=== PATIENT | female | born 1940 | race Caucasian/White ===

== ENCOUNTER 2016-11-03 13:52 | Outpatient (CLI) | payer MEDICARE, OTHER | END 2016-11-03 23:59 | DX: N30.00 Acute cystitis without hematuria (principal) ==

== ENCOUNTER 2017-04-08 11:53 | Outpatient (CLI) | payer MEDICARE, OTHER ==
[2017-04-08 12:18] LABS: BASOPHILS # (AUTO) 0.1 10^3/uL (0.0-0.1); EOSINOPHILS # (AUTO) 0.1 10^3/uL (0.0-0.7); EOSINOPHILS % (AUTO) 1.4 %; HGB - HEMOGLOBIN 11.1 g/dL (12.0-16.0); LYMPHOCYTES # (AUTO) 1.1 10^3/uL (1.5-3.5); MEAN CORPUSCULAR HEMOGLOBIN 33.3 pg (27.0-31.0); MEAN CORPUSCULAR HGB CONC 33.8 g/dL (32.0-36.0); MEAN CORPUSCULAR VOLUME 98.6 fL (81.0-99.0); MEAN PLATELET VOLUME 7.6 fL (7.9-10.8); MONOCYTES # (AUTO) 0.8 10^3/uL (0.0-1.0); MONOCYTES % (AUTO) 7.6 %; NEUTROPHILS # (AUTO) 7.9 10^3/uL (1.5-6.6); RED BLOOD COUNT 3.35 10^6/uL (4.20-5.40); RED CELL DISTRIBUTION WIDTH 13.9 % (12.0-15.0)
== END 2017-04-08 11:54 | disposition home or self-care (01) ==
LOC: LAB 11:53
PROVIDERS: ATTEND Internal Medicine
DX: R05 Cough (principal)
CPT/HCPCS: 36415; 85025

== ENCOUNTER 2017-04-08 12:07 | Outpatient (CLI) | payer MEDICARE, OTHER ==
--- NOTE | 2017-04-08 16:18 | XRAY Report ---
TWO VIEW CHEST: 04/08/2017 CLINICAL INDICATION: Cough. FINDINGS: Frontal and lateral views of the chest are compared to previous films of 03/18/2014. The cardiac silhouette is within normal limits. A left-sided dialysis catheter terminates in the righ t atrium. There is a 4.4 cm region of rounded consolidation or mass in the posterior right lung, with new elevation of the right hemidiaphragm, suspicious for underlying lung cancer. Consider CT of the chest for further evaluation. No pneumothorax is evident. IMPRESSION: EITHER A ROUNDED INFILTRATE OR A MASS IN THE POSTERIOR RIGHT LUNG, WITH ELEVATION OF THE RIGHT HEMIDIAPHRAGM. CONSIDER CHEST CT FOR FURTHER EVALUATION. JOB #: [id number] EXT JOB #:[id number]
== END 2017-04-08 12:08 | disposition home or self-care (01) ==
LOC: DI 12:07
PROVIDERS: ATTEND Internal Medicine
DX: R91.8 Other nonspecific abnormal finding of lung field (principal)
CPT/HCPCS: 36415; 71020; 85025

== ENCOUNTER 2017-04-26 15:15 | Outpatient (CLI) | payer MEDICARE, OTHER ==
--- NOTE | 2017-04-27 09:27 | XRAY Report ---
TWO VIEW CHEST: 04/26/2017 CLINICAL INDICATION: Cough. FINDINGS: Frontal and lateral views of the chest are compared to previous films of 04/08/2017. A left jugular dialysis catheter is stable. The cardiac silhouette is not enlarged. A rounded opacity in the right lung has decreased in prominence in the interval, likely representing a round pneumonia given this rate of resolution. No effusion or pneumothorax is seen. Elevation of the right hemidiaph ragm is stable. IMPRESSION: IMPROVING OPACITY AT THE RIGHT LUNG BASE, LIKELY REPRESENTING A RESOLVING PNEUMONIA. JOB #: [id number] EXT JOB #:[id number]
== END 2017-04-26 15:16 | disposition home or self-care (01) ==
LOC: DI.N 15:15
PROVIDERS: ATTEND Internal Medicine
DX: R91.8 Other nonspecific abnormal finding of lung field (principal)
CPT/HCPCS: 71020

== ENCOUNTER 2017-10-04 17:57 | Emergency (ER) | payer MEDICARE, OTHER ==
[2017-10-04 19:31] LABS: BASOPHILS # (AUTO) 0.1 10^3/uL (0.0-0.1); EOSINOPHILS # (AUTO) 0.1 10^3/uL (0.0-0.7); EOSINOPHILS % (AUTO) 0.8 %; HGB - HEMOGLOBIN 11.1 g/dL (12.0-16.0); LYMPHOCYTES # (AUTO) 0.4 10^3/uL (1.5-3.5); LYMPHOCYTES % (AUTO) 5.2 %; MEAN CORPUSCULAR HEMOGLOBIN 33.3 pg (27.0-31.0); MEAN CORPUSCULAR HGB CONC 32.9 g/dL (32.0-36.0); MEAN CORPUSCULAR VOLUME 101.3 fL (81.0-99.0); MEAN PLATELET VOLUME 6.7 fL (7.9-10.8); MONOCYTES # (AUTO) 0.4 10^3/uL (0.0-1.0); MONOCYTES % (AUTO) 4.8 %; NEUTROPHILS # (AUTO) 7.5 10^3/uL (1.5-6.6); NEUTROPHILS % (AUTO) 88.2 %; PLT - PLATELET COUNT 166 10^3/uL (130-450); RED BLOOD COUNT 3.33 10^6/uL (4.20-5.40); RED CELL DISTRIBUTION WIDTH 15.3 % (12.0-15.0); WHITE BLOOD COUNT 8.6 x10^3/uL (4.8-10.8)
[2017-10-04 19:48] LABS: ALBUMIN 3.9 g/dL (3.2-5.5); ALKALINE PHOSPHATASE 71 IU/L (42-121); ALT ALANINE AMINOTRANSFERASE < 10 IU/L (10-60); AST ASPARTATE AMINOTRANSFERASE 14 IU/L (10-42); BILIRUBIN,TOTAL 0.3 mg/dL (0.2-1.0); BUN - BLOOD UREA NITROGEN 54 mg/dL (6-20); CALCIUM 6.8 mg/dL (8.5-10.3); CARBON DIOXIDE - CO2 24 mmol/L (21-32); CHLORIDE 92 mmol/L (101-111); CREATININE 6.3 mg/dL (0.4-1.0); GFR - MDRD 6 (>89); GLUCOSE 121 mg/dL (70-100); LIPASE 22 U/L (22-51); SODIUM 132 mmol/L (135-145)
--- NOTE | 2017-10-04 19:58 | XRAY Report ---
EXAM: CHEST RADIOGRAPHY EXAM DATE: 10/04/2017 07:41 PM. CLINICAL HISTORY: Cough, weak. COMPARISON: 07/15/2017 chest x-ray. TECHNIQUE: 2 views. FINDINGS: Lungs/Pleura: There is elevation of the right hemidiaphragm. The visualized lungs are otherwise clear . No pleural effusion or pneumothorax. Mediastinum: Heart and mediastinal contours are unremarkable. Other: Chest port in stable position. IMPRESSION: Chronic elevation of right hemidiaphragm. No acute airspace disease. [facility] Referring Provider Line: [phone] SITE ID: [id number]
[2017-10-04] MEDS ORDERED: guaiFENesin/CODEINE 5 ML UDC PO STA (20:12)
--- NOTE | 2017-10-04 20:14 | ED Physician Documentation ---
History of Present Illness - Stated complaint Stated Complaint: GLF/WEAK - Chief complaint Chief Complaint: Neuro - History obtained from History obtained from: Patient, Family - History of Present Illness Timing: Today - Additonal information Additional information: Patient is a 77 year old female with a history of esrd on dialysis who is presenting to the emergency department for cough, diarrhea and generalized weakness. According to patient and over the last week the patient's nephew has been sick and the patient developed some of the same symptoms. patient states that she has had a few episodes of diarrhea and has been coughing. Patient states that the frequent coughing has strained her abdomen. patient states that she skipped dialysis because she wasn't feeling well. Review of Systems Constitutional: denies: Fever Eyes: denies: Discharge, Irritation Ears: denies: Ear pain, Drainage/discharge Nose: reports: Rhinorrhea / runny nose, Congestion Throat: denies: Oral lesions / sores Cardiac: denies: Chest pain / pressure, Palpitations, Calf pain Respiratory: reports: Cough. denies: Wheezing GI: reports: Diarrhea. denies: Abdominal Pain, Nausea, Vomiting : denies: Dysuria, Frequency Skin: denies: Rash, Lesions Immunocompromised: denies: Immunocompromised PD PAST MEDICAL HISTORY - Past Medical History Cardiovascular: Hypertension, Other Respiratory: Other Endocrine/Autoimmune: HyPOthyroidism GI: Hiatal hernia : Renal insuffiency, Other Musculoskeletal: Other Derm: None - Past Surgical History Past Surgical History: Yes General: Cholecystectomy Ortho: Other - Present Medications Home Medications: Ambulatory Orders Medication Instructions Recorded Confirmed Alprazolam [Xanax] 0.25 mg PO TID PRN 04/16/13 10/04/17 Calcitriol [Rocaltrol] 0.25 mcg PO DAILY 04/16/13 10/04/17 Levothyroxine Sodium [Levothroid] 50 mcg PO DAILY 04/16/13 10/04/17 Metoprolol Tartrate 200 mg PO BID 04/16/13 10/04/17 Nortriptyline HCl 50 mg PO DAILY 04/16/13 10/04/17 Omeprazole 20 mg PO BID 04/16/13 10/04/17 amLODIPine [Norvasc] 2.5 mg PO DAILY 04/16/13 10/04/17 Diazepam [Valium] 2 mg PO DAILY 03/18/14 10/04/17 Amox/Clav 500/125 [Augmentin] 1 each PO DAILY #10 tablet 07/15/17 10/04/17 Azithromycin [Zithromax] 250 mg PO DAILY #4 tablet 07/15/17 10/04/17 ALPRAZolam [Alprazolam] BID 10/04/17 Benzonatate [Tessalon] 100 mg PO TID #14 capsule 10/04/17 Codeine Phosphate/Guaifenesin 5 ml PO DAILY #100 ml 10/04/17 [Guaifen-Codeine 100-10 mg/5 ml] Ondansetron Odt [Zofran] 4 mg TL Q6H PRN #14 tablet 10/04/17 - Allergies Allergies/Adverse Reactions: Allergies Allergy/AdvReac Type Severity Reaction Status Date / Time No Known Drug Allergies Allergy Verified 07/15/17 17:07 - Social History Does the pt smoke?: No Smoking Status: Never smoker Does the pt drink ETOH?: No Does the pt have substance abuse?: No - Immunizations Immunizations are current?: Yes Immunizations: TDAP >10years/unknown - POLST Patient has POLST: No PD ED PE NORMAL - Vitals Vital signs reviewed: Yes - General General: Alert and oriented X 3, No acute distress - HEENT HEENT: Atraumatic, PERRL, Moist mucous membranes - Neck Neck: Supple, no meningeal sign - Cardiac Cardiac: RRR, No murmur - Respiratory Respiratory: No respiratory distress - Abdomen Abdomen: Soft, Non distended - Derm Derm: Normal color, Warm and dry - Extremities Extremities: No deformity, Normal ROM s pain - Neuro Neuro: Alert and oriented X 3, No motor deficit, No sensory deficit, Normal speech - Psych Psych: Normal mood Results - Vitals Vitals: Vital Signs - 24 hr 10/04/17 10/04/17 18:26 20:26 Temperature 37.3 C 37.5 C Heart Rate 85 85 Respiratory 20 18 Rate Blood Pressure 144/59 H 136/75 H O2 Saturation 96 98 Oxygen O2 Source Room air - Labs Labs: Laboratory Tests 10/04/17 10/04/17 19:25 19:25 WBC 8.6 RBC 3.33 L Hgb 11.1 L Hct 33.7 L MCV 101.3 H MCH 33.3 H MCHC 32.9 RDW 15.3 H Plt Count 166 MPV 6.7 L Neut # 7.5 H Lymph # 0.4 L [place] # 0.4 Eos # 0.1 Baso # 0.1 Absolute Nucleated RBC 0.01 Nucleated RBC % 0.1 Sodium 132 L Potassium 5.8 H Chloride 92 L Carbon Dioxide 24 Anion Gap 16.0 H BUN 54 H Creatinine 6.3 H Estimated GFR (MDRD) 6 L Glucose 121 H Calcium 6.8 L Total Bilirubin 0.3 AST 14 ALT < 10 L Alkaline Phosphatase 71 Total Protein 8.0 Albumin 3.9 Globulin 4.1 Albumin/Globulin Ratio 1.0 Lipase 22 - Rads (name of study) chest x-ray Radiology: Final report received (no acute disease process) PD MEDICAL DECISION MAKING - ED course Complexity details: reviewed old records, reviewed results, re-evaluated patient , considered differential, d/w patient, d/w family ED course: Patient was seen and examined at bedside. labs were drawn and ekg was ordered. When patient's diagnostics came back the results were reviewed. Patient had mild hyperkalemia but no ekg changes. Patient was treated with robitussin AC. Patient required no further work up at this time and was stable for discharge with outpatient follow up. Departure - Departure Disposition: 01 Home, Self Care Clinical Impression: Viral syndrome Condition: Good Instructions: ED Viral Syndrome Follow-Up: Edgar Ceballos MD [Primary Care Provider] - Within 3 Days Prescriptions: Benzonatate [Tessalon] 100 mg PO TID #14 capsule Codeine Phosphate/Guaifenesin [Guaifen-Codeine 100-10 mg/5 ml] 5 ml PO DAILY # 100 ml Ondansetron Odt [Zofran] 4 mg TL Q6H PRN #14 tablet PRN Reason: Nausea / Vomiting Comments: Your diagnostics today showed no pneumonia. Your symptoms are likely viral in nature. It is important that you stay well hydrated and get plenty of rest. You should drink water and electrolyte solution (gatorade). it is important that you go to [facility]ail[facility] tomorrow for your treatment. You should follow up with your doctor this week if your symptoms persist. You may return to the emergency department at any time for new, worsening or uncontrollable symptoms. Discharge Date/Time: 10/04/17 20:41
[2017-10-04 20:27] VITALS: BP 136/75
== END 2017-10-04 20:41 | disposition home or self-care (01) ==
LOC: ED 17:57
DX: B34.9 Viral infection, unspecified (principal); I12.0 Hypertensive chronic kidney disease with stage 5 chronic kidney disease or end stage renal disease; N18.6 End stage renal disease; Z99.2 Dependence on renal dialysis; E03.9 Hypothyroidism, unspecified
CPT/HCPCS: 36415; 71046; 80053; 83690; 85025; 99283; 99284; A9270

== ENCOUNTER 2018-12-23 12:26 | Emergency (ER) | payer MEDICARE, OTHER ==
--- NOTE | 2018-12-23 13:29 | ED Physician Documentation ---
PD HPI HEAD INJURY - Stated complaint Stated Complaint: GLF/FACE AND HEAD PX - Chief complaint Chief Complaint: Neuro - History obtained from History obtained from: Patient PD PAST MEDICAL HISTORY - Past Medical History Cardiovascular: Hypertension, Other Respiratory: Other Endocrine/Autoimmune: HyPOthyroidism GI: Hiatal hernia : Renal insuffiency, Other Musculoskeletal: Other Derm: None - Past Surgical History Past Surgical History: Yes General: Cholecystectomy Ortho: Other - Present Medications Home Medications: Ambulatory Orders Medication Instructions Recorded Confirmed Levothyroxine Sodium [Levothroid] 50 mcg PO DAILY 04/16/13 12/23/18 Metoprolol Tartrate 200 mg PO BID 04/16/13 12/23/18 Nortriptyline HCl 50 mg PO DAILY 04/16/13 12/23/18 Albuterol 1 neb IH QID PRN 12/23/18 12/23/18 Hydrocodone/Acetaminophen [[place] 1 tab PO TID PRN 12/23/18 12/23/18 5-325 Tablet] Pantoprazole [Protonix] 1 tab PO DAILY 12/23/18 12/23/18 clonazePAM [Clonazepam] 1 tab PO TID PRN 12/23/18 12/23/18 - Allergies Allergies/Adverse Reactions: Allergies Allergy/AdvReac Type Severity Reaction Status Date / Time No Known Drug Allergies Allergy Verified 07/15/17 17:07 - Social History Does the pt smoke?: No Smoking Status: Never smoker Does the pt drink ETOH?: No Does the pt have substance abuse?: No - Immunizations Immunizations are current?: Yes Immunizations: TDAP >10years/unknown - POLST Patient has POLST: No Results - Vitals Vitals: Vital Signs - 24 hr 12/23/18 12:36 Temperature 37.1 C Heart Rate 75 Respiratory 18 Rate Blood Pressure 132/54 H O2 Saturation 98 Oxygen O2 Source Room air
[2018-12-23] MEDS ORDERED: HYDROmorphone 1 MG/ML CARPUJECT IVP STA (13:35)
--- NOTE | 2018-12-23 13:45 | ED Physician Documentation ---
PD HPI HEAD INJURY - Stated complaint Stated Complaint: GLF/FACE AND HEAD PX - Chief complaint Chief Complaint: Neuro - History obtained from History obtained from: Patient, Family - History of Present Illness Mechanism of head injury: Fell Where head injury occurred: Home Timing - onset: How many days ago (2) Pain level max: 8 Pain level now: 8 Location of injury: Front Quality of pain: Pain, Throbbing, Aching, Dull Associated symptoms: Neck pain. No: LOC, AMS, Amnesia, Nausea / vomiting, Paresthesias, Seizures, Ear drainage Symptoms improve with: Rest Symptoms worsen with: Palpation, Movement Contributing factors: No: Anticoagulated, Intoxicated Recently seen: Not recently seen - Additional information Additional information: Patient states that she follows regularly. She was using her walker leaving the bathroom when she turned tripped and fell forward landing on her face. Head, face and neck pain now. Better with rest and worse with movement. Is on Vicodin normally at home for pain Review of Systems Ten Systems: 10 systems reviewed and negative Constitutional: denies: Fever, Chills Respiratory: denies: Cough GI: denies: Vomiting, Diarrhea Skin: denies: Rash Musculoskeletal: denies: Back pain Neurologic: denies: Focal weakness, Numbness, Confused, Altered mental status PD PAST MEDICAL HISTORY - Past Medical History Cardiovascular: Hypertension, Other Respiratory: Other Endocrine/Autoimmune: HyPOthyroidism GI: Hiatal hernia : Renal insuffiency, Other Musculoskeletal: Other Derm: None - Past Surgical History Past Surgical History: Yes General: Cholecystectomy Ortho: Other - Present Medications Home Medications: Ambulatory Orders Medication Instructions Recorded Confirmed Levothyroxine Sodium [Levothroid] 50 mcg PO DAILY 04/16/13 12/23/18 Metoprolol Tartrate 200 mg PO BID 04/16/13 12/23/18 Nortriptyline HCl 50 mg PO DAILY 04/16/13 12/23/18 Albuterol 1 neb IH QID PRN 12/23/18 12/23/18 Hydrocodone/Acetaminophen [[place] 1 tab PO TID PRN 12/23/18 12/23/18 5-325 Tablet] Pantoprazole [Protonix] 1 tab PO DAILY 12/23/18 12/23/18 clonazePAM [Clonazepam] 1 tab PO TID PRN 12/23/18 12/23/18 - Allergies Allergies/Adverse Reactions: Allergies Allergy/AdvReac Type Severity Reaction Status Date / Time No Known Drug Allergies Allergy Verified 07/15/17 17:07 - Social History Does the pt smoke?: No Smoking Status: Never smoker Does the pt drink ETOH?: No Does the pt have substance abuse?: No - Immunizations Immunizations are current?: Yes Immunizations: TDAP >10years/unknown - POLST Patient has POLST: No PD ED PE NORMAL - Vitals Vital signs reviewed: Yes - General General: Alert and oriented X 3, No acute distress, Well developed/nourished - HEENT HEENT: PERRL, Moist mucous membranes, Other (Diffuse bruising over the forehead bridge of the nose, under the eyes. Facial tenderness throughout.) - Neck Neck: No bony TTP (Diffuse tenderness to palpation over the cervical spine.) - Cardiac Cardiac: RRR, Strong equal pulses - Respiratory Respiratory: No respiratory distress, Clear bilaterally - Abdomen Abdomen: Soft, Non tender, Non distended - Back Back: No spinal TTP - Derm Derm: Warm and dry, No rash - Extremities Extremities: No deformity, No tenderness to palpate, Normal ROM s pain, Other (Dialysis port in the left upper chest) - Neuro Neuro: Alert and oriented X 3, quality compliance manager 2-12 intact, No motor deficit, No sensory deficit, Normal speech Eye Opening: Spontaneous Motor: Obeys Commands Verbal: Oriented GCS Score: 15 - Psych Psych: Normal mood, Normal affect Results - Vitals Vitals: Vital Signs - 24 hr 12/23/18 12/23/18 12:36 14:51 Temperature 37.1 C Heart Rate 75 79 Respiratory 18 18 Rate Blood Pressure 132/54 H 148/69 H O2 Saturation 98 100 Oxygen O2 Source Room air - Labs Labs: Laboratory Tests 12/23/18 14:45 Sodium 132 L Potassium 4.8 Chloride 97 L Carbon Dioxide 22 Anion Gap 13.0 BUN 55 H Creatinine 5.8 H Estimated GFR (MDRD) 7 L Glucose 102 H Calcium 7.9 L - Rads (name of study) head CT Radiology: Prelim report reviewed, EMP read contemporaneously, See rad report (Normal head CT. ) Maxillofacial CT Radiology: Prelim report reviewed, EMP read contemporaneously, See rad report ( No facial bone fractures. 2. Acute type II dens fracture, see accompanying CT scan head and cervical spine for details. 3. Multifocal poor dentition of the remaining teeth. ) Cervical spine CT Radiology: Prelim report reviewed, EMP read contemporaneously, See rad report (Acute, posteriorly displaced, angulated fracture through the base of the dens as described. No additional fractures appreciated. ) PD MEDICAL DECISION MAKING - ED course Complexity details: reviewed results, re-evaluated patient, considered differential, d/w patient, d/w family, d/w education sales consultant ED course: 78-year-old female with a type II dens fracture, posteriorly displaced. Placed in a hard cervical collar. Contacted [facility] in [place], Dr. Dash (neurosurgery) Recommends transfer to the trauma service. I spoke with the ER doctor, [id number] Dr. Ch who graciously accepts in transfer. Patient is GCS 15. Neurologically intact. Pain well controlled. No other acute findings on CT scans. She is on dialysis and missed her dialysis on Tuesday secondary to neck pain. COBRA forms completed. Patient transferred to [facility] in [place]. This document was made in part using voice recognition software. While efforts are made to proofread this document, sound alike and grammatical errors may occur. Departure - Departure Disposition: 02 Transfer Acute Care Hosp Clinical Impression: Type II fracture of odontoid process Qualifiers: Encounter type: initial encounter Fracture type: closed Fracture alignment: posteriorly displaced Qualified Code(s): S12.111A - Posterior displaced Type II dens fracture, initial encounter for closed fracture Condition: Stable
--- NOTE | 2018-12-23 14:20 | CT Report ---
Reason: fall, head pain Procedure Date: 12/23/2018 Accession Number: [id number] / [id number] Procedure: CT - HEAD WO CPT Code: FULL RESULT: EXAM: CT HEAD EXAM DATE: 12/23/2018 01:57 PM. CLINICAL HISTORY: Fall, head pain. COMPARISON: None. TECHNIQUE: Multiaxial CT images were obtained from the foramen magnum to the vertex. Reformats: Sagittal and coronal. IV contrast: None. In accordance with CT protocol optimization, one or more of the following dose reduction techniques were utilized for this exam: automated exposure control, adjustment of mA and/or KV based on patient size, or use of iterative reconstructive technique. FINDINGS: Parenchyma: No intraparenchymal hemorrhage. No evidence of mass, midline shift, or CT findings of infarction. Jones-white differentiation is distinct. Extraaxial Spaces: Normal for age. No subdural or epidural collections identified. Ventricles: Normal in size and position. Sinuses and Orbits: Imaged paranasal sinuses, orbits, and mastoids show no significant abnormality. Bones: No evidence of fracture or calvarial defect. Other: None. IMPRESSION: Normal head CT. [facility]
--- NOTE | 2018-12-23 14:34 | CT Report ---
Reason: fall, neck pain Procedure Date: 12/23/2018 Accession Number: [id number] / [id number] Procedure: CT - CERVICAL SPINE WO CPT Code: FULL RESULT: EXAM: CT CERVICAL SPINE WITHOUT CONTRAST DATE: 12/23/2018 02:07 PM. HISTORY: Fall, neck pain. COMPARISONS: None. TECHNIQUE: Thin-section axial images were acquired of the cervical spine without contrast. Post-processing: Coronal and sagittal reformats. Other: None. In accordance with CT protocol optimization, one or more of the following dose reduction techniques were utilized for this exam: automated exposure control, adjustment of mA and/or KV based on patient size, or use of iterative reconstructive technique. FINDINGS: Alignment: As below. Bones: There is an acute transverse, displaced, apex anterior angulated fracture through the base of the dens. The dens fracture fragment is displaced posteriorly by 6 mm and there is 4-5 mm of distraction at the anterior fracture margin. There is 37 degrees of apex anterior angulation. No additional fractures appreciated. Interspace Levels/Facets: C1-C2: Intact C1 ring (joints of Luschka/spinal laminar line) is displaced posteriorly 6 mm along with the dens fracture fragment. C2-C3: Unremarkable. C3-C4: Unremarkable. C4-C5: Disk space narrowing, mild osteophytosis and facet arthrosis C5-C6: Mild bilateral facet arthrosis. C6-C7: Disk space narrowing and bilateral facet arthrosis. C7-T1: Unremarkable. Musculature: Normal. No fatty atrophy. Other: Swelling of the prevertebral soft tissues anterior to C1 and C2 upwards of 7 mm. Mild biapical pleural thickening amd vertical bands of opacity most likely a scar. IMPRESSION: 1. Acute, posteriorly displaced, angulated fracture through the base of the dens as described. No additional fractures appreciated. [facility] The call report notification system was initiated by Dr. César Heredia at 02:22 PM on 12/23/2018. The above call report findings were discussed with Mike Mary by Dr. César Heredia at 02:25 PM on 12/23/2018.
--- NOTE | 2018-12-23 14:54 | CT Report ---
Reason: fall, face pain Procedure Date: 12/23/2018 Accession Number: [id number] / [id number] Procedure: CT - MAXILLOFACIAL WO CPT Code: FULL RESULT: EXAM: CT MAXILLOFACIAL WITHOUT CONTRAST EXAM DATE: 12/23/2018 02:07 PM. CLINICAL HISTORY: Fall, face pain. COMPARISONS: Accompanying CT scan head/ cervical spine. TECHNIQUE: Thin-section axial images were acquired of the face without contrast. Post-processing: Coronal and sagittal reformats. Other: None. In accordance with CT protocol optimization, one or more of the following dose reduction techniques were utilized for this exam: automated exposure control, adjustment of mA and/or KV based on patient size, or use of iterative reconstructive technique. Findings: Relevant images are indicated (image number, series number). The mandible is intact, patient partially edentulous with multifocal poor dentition remaining, no apical cyst. Maxilla is edentulous. There is prevertebral soft tissue swelling, with an acute type II C2 odontoid fracture, with posterior displacement of the tip of the dens relative to the body of the dens measuring 0.4 cm. There are no facial bone fractures. The skull base appears to be intact. Impressions: 1. No facial bone fractures. 2. Acute type II dens fracture, see accompanying CT scan head and cervical spine for details. 3. Multifocal poor dentition of the remaining teeth. [facility]
[2018-12-23 15:12] LABS: CALCIUM 7.9 mg/dL (8.5-10.3); CREATININE 5.8 mg/dL (0.4-1.0)
[2018-12-23 15:15] LABS: BASOPHILS % (AUTO) 0.4 %; EOSINOPHILS # (AUTO) 0.1 10^3/uL (0.0-0.7); HGB - HEMOGLOBIN 10.5 g/dL (12.0-16.0); LYMPHOCYTES # (AUTO) 1.2 10^3/uL (1.5-3.5); LYMPHOCYTES % (AUTO) 10.2 %; MEAN CORPUSCULAR HEMOGLOBIN 33.2 pg (27.0-31.0); MEAN CORPUSCULAR HGB CONC 33.1 g/dL (32.0-36.0); MEAN CORPUSCULAR VOLUME 100.3 fL (81.0-99.0); MONOCYTES # (AUTO) 0.7 10^3/uL (0.0-1.0); MONOCYTES % (AUTO) 5.9 %; NEUTROPHILS # (AUTO) 9.5 10^3/uL (1.5-6.6); NEUTROPHILS % (AUTO) 82.5 %; PLT - PLATELET COUNT 212 10^3/uL (130-450); RED BLOOD COUNT 3.15 10^6/uL (4.20-5.40); RED CELL DISTRIBUTION WIDTH 14.6 % (12.0-15.0); WHITE BLOOD COUNT 11.5 x10^3/uL (4.8-10.8)
[2018-12-23 15:20] LABS: BILIRUBIN,URINE NEGATIVE (NEGATIVE); GLUCOSE, URINE (UA) NEGATIVE (NEGATIVE); KETONES,URINE (UA) NEGATIVE (NEGATIVE); LEUKOCYTE ESTERASE, URINE LARGE (NEGATIVE); NITRITE,URINE NEGATIVE (NEGATIVE); OCCULT BLOOD,URINE MODERATE (NEGATIVE); PROTEIN,URINE TRACE mg/dL (NEGATIVE); UROBILINOGEN,URINE 0.2 (NORMAL) E.U./dL (NORMAL)
[2018-12-23 15:22] LABS: CLARITY,URINE HAZY (CLEAR)
[2018-12-23 15:30] LABS: BACTERIA,URINE Rare /HPF (None Seen); SQUAMOUS EPITHELIAL CELL,UR FEW Squamous (<= Few)
[2018-12-23 15:31] LABS: YEAST,URINE PRESENT
[2018-12-23 16:11] VITALS: BP 139/68
== END 2018-12-23 16:29 | disposition short-term general hospital (02) ==
LOC: ED 12:26
DX: S12.111A Posterior displaced Type II dens fracture, initial encounter for closed fracture (principal); S00.83XA Contusion of other part of head, initial encounter; S00.33XA Contusion of nose, initial encounter; W01.10XA Fall on same level from slipping, tripping and stumbling with subsequent striking against unspecified object, initial encounter; S00.12XA Contusion of left eyelid and periocular area, initial encounter; S00.11XA Contusion of right eyelid and periocular area, initial encounter; Y93.01 Activity, walking, marching and hiking; Y92.009 Unspecified place in unspecified non-institutional (private) residence as the place of occurrence of the external cause; I10 Essential (primary) hypertension; E03.9 Hypothyroidism, unspecified; Z99.2 Dependence on renal dialysis; Z91.81 History of falling
CPT/HCPCS: 36415; 70450; 70486; 72125; 80048; 81001; 85025; 87086; 96374; 99283; 99284; J1170; 81003

== ENCOUNTER 2019-11-29 14:44 | Emergency (ER) | payer MEDICARE, OTHER ==
--- NOTE | 2019-11-29 15:27 | ED Physician Documentation ---
History of Present Illness - Stated complaint Stated Complaint: FEVER/CHILLS - Chief complaint Chief Complaint: General - History obtained from History obtained from: Patient (79-year-old pleasant female comes in today with chief complaint of fever, chills, cough. She has a past medical history of pneumonia on the right side a year or 2 ago, she has concerns that she may have pneumonia again. Patient does complain of having a cough, rhinorrhea, postnasal drip. 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 She used it once last night, with good results. She has not used it today. She denies feeling short of breath.), Family Review of Systems Constitutional: reports: Fever, Chills, Fatigue Eyes: reports: Reviewed and negative Ears: reports: Loss of hearing. denies: Drainage/discharge, Tinnitus/ringing Nose: reports: Rhinorrhea / runny nose, Congestion. denies: Sinus pressure / pain Throat: reports: Reviewed and negative Cardiac: reports: Reviewed and negative Respiratory: reports: Cough, Wheezing GI: reports: Reviewed and negative : reports: Other Skin: reports: Reviewed and negative Musculoskeletal: reports: Reviewed and negative, Other PD PAST MEDICAL HISTORY - Past Medical History Past Medical History: Yes Cardiovascular: Hypertension, Other Respiratory: Other Endocrine/Autoimmune: HyPOthyroidism GI: Hiatal hernia : Renal insuffiency, Other Musculoskeletal: Other Derm: None - Past Surgical History Past Surgical History: Yes General: Cholecystectomy Ortho: Other - Present Medications Home Medications: Ambulatory Orders Medication Instructions Recorded Confirmed Levothyroxine Sodium [Levothroid] 50 mcg PO DAILY 04/16/13 12/23/18 Metoprolol Tartrate 200 mg PO BID 04/16/13 12/23/18 Nortriptyline HCl 50 mg PO DAILY 04/16/13 12/23/18 Albuterol 1 neb IH QID PRN 12/23/18 12/23/18 Hydrocodone/Acetaminophen [[place] 1 tab PO TID PRN 12/23/18 12/23/18 5-325 Tablet] Pantoprazole [Protonix] 1 tab PO DAILY 12/23/18 12/23/18 clonazePAM [Clonazepam] 1 tab PO TID PRN 12/23/18 12/23/18 Doxycycline Hyclate 100 mg PO BID #20 capsule 11/29/19 - Allergies Allergies/Adverse Reactions: Allergies Allergy/AdvReac Type Severity Reaction Status Date / Time No Known Drug Allergies Allergy Verified 11/29/19 15:00 - Social History Does the pt smoke?: No Smoking Status: Never smoker Does the pt drink ETOH?: No Does the pt have substance abuse?: No - Immunizations Immunizations are current?: Yes Immunizations: TDAP >10years/unknown - POLST Patient has POLST: No PD ED PE NORMAL - General General: Alert and oriented X 3, No acute distress, Well developed/nourished - HEENT HEENT: Atraumatic, PERRL, EOMI, Ears normal, Pharynx benign - Neck Neck: No adenopathy - Cardiac Cardiac: RRR, No murmur, No gallop - Respiratory Respiratory: No respiratory distress, Other (Right lung with coarse breath sounds) - Abdomen Abdomen: Normal bowel sounds, Soft, Non tender PD ED PE EXPANDED - Derm Derm: Other (Right anterior chest wall with port access.) Results - Vitals Vitals: Vital Signs - 24 hr 11/29/19 11/29/19 14:54 15:15 Temperature 36.9 C 36.7 C Heart Rate 86 108 H Respiratory 18 16 Rate Blood Pressure 126/44 L 121/67 O2 Saturation 95 99 Oxygen O2 Source Room air - Labs Labs: Laboratory Tests 11/29/19 11/29/19 11/29/19 15:32 15:32 16:00 WBC 11.3 H RBC 2.78 L Hgb 9.3 L Hct 29.2 L MCV 105.0 H MCH 33.5 H MCHC 31.8 L RDW 14.1 Plt Count 143 MPV 9.5 Neut # (Auto) 9.8 H Lymph # (Auto) 0.7 L [place] # (Auto) 0.7 Eos # (Auto) 0.0 Baso # (Auto) 0.0 Absolute Nucleated RBC 0.00 Nucleated RBC % 0.0 Sodium 133 L Potassium 3.4 L Chloride 93 L Carbon Dioxide 27 Anion Gap 13.0 BUN 35 H Creatinine 3.6 H Estimated GFR (MDRD) 12 L Glucose 209 H Calcium 7.6 L Influenza A (Rapid) Negative Influenza B (Rapid) Negative - Rads (name of study) 1600 Radiology: Final report received (Small amount of atelectasis going noted to the right lower lung, and bronchial thickening suggesting chronic airway disease.) PD MEDICAL DECISION MAKING - ED course Complexity details: reviewed results, re-evaluated patient, d/w patient, d/w family Departure - Departure Disposition: Home, Self Care Clinical Impression: URI, acute Condition: Good Instructions: ED Upper Resp Infec Abx Tx Prescriptions: Doxycycline Hyclate 100 mg PO BID #20 capsule Comments: Keep your regularly scheduled dialysis appointments on Tuesday and Tuesday. I have prescribed you some doxycycline antibiotic to take twice a day for the next 10 days. Today your x-ray showed that you do not have a pneumonia. You also were tested for the flu today which was negative. I am prescribing antibiotic because your slight elevation in your white blood count we want to make sure you do not get worse. If you fail to improve after 7 to 10 days follow-up with primary care provider. If your symptoms worsen you are welcome return to the ER.
[2019-11-29 15:43] LABS: BASOPHILS % (AUTO) 0.3 %; EOSINOPHILS % (AUTO) 0.1 %; HGB - HEMOGLOBIN 9.3 g/dL (12.0-16.0); LYMPHOCYTES # (AUTO) 0.7 10^3/uL (1.5-3.5); LYMPHOCYTES % (AUTO) 5.8 %; MEAN CORPUSCULAR HEMOGLOBIN 33.5 pg (27.0-31.0); MEAN CORPUSCULAR HGB CONC 31.8 g/dL (32.0-36.0); MEAN PLATELET VOLUME 9.5 fL (7.9-10.8); MONOCYTES # (AUTO) 0.7 10^3/uL (0.0-1.0); MONOCYTES % (AUTO) 5.8 %; NEUTROPHILS # (AUTO) 9.8 10^3/uL (1.5-6.6); NEUTROPHILS % (AUTO) 87.2 %; PLT - PLATELET COUNT 143 10^3/uL (130-450); RED BLOOD COUNT 2.78 10^6/uL (4.20-5.40); RED CELL DISTRIBUTION WIDTH 14.1 % (12.0-15.0); WHITE BLOOD COUNT 11.3 x10^3/uL (4.8-10.8)
[2019-11-29 16:00] LABS: CALCIUM 7.6 mg/dL (8.5-10.3); CREATININE 3.6 mg/dL (0.4-1.0)
--- NOTE | 2019-11-29 16:08 | XRAY Report ---
Reason: cough Procedure Date: 11/29/2019 Accession Number: [id number] / [id number] Procedure: XR - Chest 2 View X-Ray CPT Code: 66665 Final Report FULL RESULT: EXAM: CHEST RADIOGRAPHY EXAM DATE: 11/29/2019 03:58 PM. CLINICAL HISTORY: Cough. COMPARISON: CHEST 2 VIEW 10/04/2017 7:21 PM. TECHNIQUE: 2 views. FINDINGS: Lungs/Pleura: Mild elevation of the right hemidiaphragm again noted. Mild bronchial wall thickening centrally. Small amount of reticulation again noted at the right lung base. No new focal consolidation or pleural effusions. No pneumothorax. Mediastinum: Cardiac silhouette size appears unremarkable. Mild vascular calcification. Right-sided central catheter tip terminates near the superior cavoatrial junction. Other: None. IMPRESSION: 1. Persistent mild elevation of the right hemidiaphragm with small amount of reticulation at the right lung base that may be a small amount of atelectasis/scarring. 2. Mild bronchial thickening again noted centrally, suggesting airways disease, which may be on an acute or chronic basis. 3. No new focal consolidation or pleural effusions. RADIA
[2019-11-29 17:53] VITALS: BP 118/78
== END 2019-11-29 17:53 | disposition home or self-care (01) ==
LOC: ED 14:44
DX: J06.9 Acute upper respiratory infection, unspecified (principal); I10 Essential (primary) hypertension; N28.9 Disorder of kidney and ureter, unspecified; Z99.2 Dependence on renal dialysis
CPT/HCPCS: 36415; 71046; 80048; 85025; 87275; 87276; 99284

== ENCOUNTER 2021-11-12 07:10 | Day surgery (SDC) | payer MEDICARE, OTHER ==
[~2021-11-12 07:10] MED LIST: CYCLOPENTOLATE 1% OPHTH DROPS 2 ML ONE; KETOROLAC 0.45% OPHTH DROPS ONE; PHENYLEPHRINE 2.5% OPHTH 2 ML DROPS ONE; PROPARACAINE 0.5% OPHTH DROPS 15 ML ONE
[2021-11-12] MEDS ORDERED: LACTATED RINGERS 1,000 ML IV ONE (07:26)
--- NOTE | 2021-11-12 08:23 | ANESTHESIA ---
Pre-Anesthesia VS, & Labs - Diagnosis L senile combined cataract - Procedure L extraction cataract w/IOL Vital Signs: Temp Pulse Resp BP Pulse Ox 37.3 C 86 20 135/51 H 97 11/12/21 07:25 11/12/21 07:25 11/12/21 07:25 11/12/21 07:25 11/12/21 07:25 Height: 5 ft 7 in Weight (kg): 62.7 kg Body Mass Index: 21.6 BMI Classification: Healthy weight - NPO >8 hours - Is Patient ?: No - Lab Results Lab results reviewed: Yes Home Medications and Allergies Home Medications: Ambulatory Orders Calcium Carbonate [Tums (Calcium Carbonate 500mg)] 1,000 mg PO BID 11/12/21 Loperamide [Imodium] 8 mg PO PRN PRN 11/12/21 Sertraline [Zoloft] 1 tab PO DAILY 11/12/21 Levothyroxine Sodium [Levothroid] 50 mcg PO DAILY 04/16/13 Albuterol 1 neb IH QID PRN 12/23/18 Hydrocodone/Acetaminophen [[place] 5-325 Tablet] 1 tab PO TID PRN 12/23/18 Pantoprazole [Protonix] 1 tab PO DAILY 12/23/18 clonazePAM [Clonazepam] 1 tab PO TID PRN 12/23/18 Calcium Carbonate [Tums (Calcium Carbonate 500mg)] 1,000 mg PO BID 11/12/21 Loperamide [Imodium] 8 mg PO PRN PRN 11/12/21 Sertraline [Zoloft] 1 tab PO DAILY 11/12/21 Allergies/Adverse Reactions: Allergies Allergy/AdvReac Type Severity Reaction Status Date / Time No Known Drug Allergies Allergy Verified 11/12/21 07:48 Anes History & Medical History - Anesthetic History Anesthesia Complications: reports: No previous complications Family history of Anesthesia Complications: Denies Family history of Malignant Hyperthermia: Denies - Medical History Cardiovascular: reports: Hypertension, Other Pulmonary: reports: Other Gastrointestinal: reports: Hiatal hernia Urinary: reports: Renal insuffiency, Other Musculoskeletal: reports: Other Endocrine/Autoimmune: reports: HyPOthyroidism Blood Disorders: reports: Anemia Skin: reports: None Smoking Status: Never smoker - Surgical History General: reports: Cholecystectomy Orthopedic: reports: Other Plan Anesthesia Type: MAC Consent for Procedure(s) Verified and Reviewed: Yes Code Status: Attempt Resuscitation ASA classification: 2-Mild systemic disease Is this case an emergency?: No
[2021-11-12] MEDS ORDERED: MIDAZOLAM 2 MG/2 ML VIAL ONE (08:27)
[2021-11-12] MEDS ORDERED: TIMOLOL 0.5% OPHTH DROPS OPTH ONE (08:53)
[2021-11-12] MEDS ORDERED: BRIMONIDINE 0.2% OPHTH DROPS 5 ML OPTH ONE (08:53)
[2021-11-12] MEDS ORDERED: EPINEPHrine 1 MG/ML AMP IR ONE (08:53)
[2021-11-12] MEDS ORDERED: BSS/LIDOCAINE/EPINEPHRINE 1 ML SYRINGE IO ONE (08:53)
[2021-11-12] MEDS ORDERED: TRIAMCIN/MOXIFLOX OPHTHALMIC 0.6 ML VIAL IO ONE ×2 (08:54→13:38)
[2021-11-12] MEDS ORDERED: VANCOMYCIN OPHTHALMI 8MG/0.8ML 8 MG/0.8 ML SYRINGE IO ONE (08:54)
[2021-11-12] MEDS ORDERED: PROPARACAINE 0.5% OPHTH DROPS 15 ML EACHEYE ONE (08:54)
[2021-11-12] MEDS ORDERED: fentaNYL 100 MCG/2 ML VIAL ONE (08:59)
[2021-11-12] MEDS ORDERED: PROPOFOL 200 MG/20 ML VIAL IVP ONE (09:01)
[2021-11-12] MEDS ORDERED: ACETYLCHOLINE 20 MG/2 ML KIT IO ONE ×2 (09:04→09:11)
[2021-11-12] MEDS ORDERED: LACTATED RINGERS 900 ML IV ONE (09:09)
[2021-11-12 09:31] VITALS: BP 130/51
--- NOTE | 2021-11-12 10:48 | OPERATIVE REPORT ---
Operative Report - Other Other Information/Narrative: Date of Surgery: 11/12/21 Preop Dx: Visually significant cataract left eye. This was the first cataract surgery. Postop Dx: Same Procedure: Phacoemulsification with posterior chamber intraocular lens implant left eye Surgeon: Dr. Jaziel Isabel Anesthesia: Monitored anesthesia care Complications: None Operative Indications: This is a 81-year-old F with progressive vision loss in the left eye due to 4+ nuclear sclerotic cataract. Best corrected visual acuity was 20/80 with glare to 20/800 vision in the left eye. Indications for surgery were: - Overall decrease in vision - Difficulty seeing words on a computer screen - Difficulty reading - Difficulty seeing words, closed captions, or game scores on TV - Difficulty seeing street signs - Difficulty driving in low light or at night - Difficulty driving at night because of headlights from other vehicles - Difficulty with glare or bright lights in any situation - Difficulty tracking a golf ball - Decreased acuity with firearms The patient was consented at length concerning the risks and benefits of cataract surgery after which the patient expressed a desire to proceed with surgery. Operative Procedure: The patient was taken into OR#3 and placed under monitored anesthesia care. A surgical time-out was conducted confirming correct patient, correct procedure, and correct surgical site. The patient was given topical anesthesia and then prepped and draped in the usual sterile fashion. The eye was entered at the 6 and 3 oclock positions. Intracameral Shugarcaine was injected into the anterior chamber followed by a dispersive viscoelastic. A continuous-tear curvilinear capsulorhexis was performed. The nucleus was hydrodissected and phacoemulsified. The cortex was evacuated using automated infusion and aspiration. A cohesive viscoelastic was injected into the capsular bag and a 23.0 diopter intraocular lens was inserted into the bag. Infusion and aspiration were used to evacuate the viscoelastic materials from the eye. The wounds were hydrated and the eye inflated to physiologic pressure using balanced salt solution. However, during filling of the eye the iris prolapsed into the main wound. A cyclodialysis spatula had to be use to dislodge the iris from the wound. Miochol was injected into the anterior chamber to bring the iris down and away from the wound. The chamber wounds were hydrated again and the chamber repressurized with BSS. Approximately 0.25ml of a mixture of triamcinolone and moxifloxacin was injected trans-sclerally into the vitreous in the inferotemporal quadrant using a 30 gauge cannula. An additional 0.55ml of a mixture of triamcinolone, moxifloxacin, and vancomycin was injected subconjunctivally in the superior quadrant for infection and inflammation prophylaxis. Wound integrity was checked with Weck-Nilda sponges. The patient was taken from the operating room in good condition and given post-op instructions.
--- NOTE | 2021-11-12 11:39 | ANESTHESIA POST OP EVALUATION ---
Anesthesia Post Eval - Post Anesthesia Eval Vitals: Last Vital Signs Temp 36.9 C 11/12/21 09:27 Pulse 98 11/12/21 09:30 Resp 16 11/12/21 09:30 BP 130/51 L 11/12/21 09:30 Pulse Ox 100 11/12/21 09:30 CV Function Including HR & BP: Stable Pain Control: Satisfactory Nausea & Vomiting: Negative Mental Status: Baseline Respiratory Status: Airway Patent Hydration Status: Satisfactory Anesthesia Complications: None
[2021-11-12] MEDS ORDERED: BRIMONIDINE 0.2% OPHTH DROPS 5 ML ONE (13:38)
[2021-11-12] MEDS ORDERED: TIMOLOL 0.5% OPHTH DROPS ONE (13:38)
[2021-11-12] MEDS ORDERED: BSS/LIDOCAINE/EPINEPHRINE 1 ML VIAL ONE (13:38)
== END 2021-11-12 07:11 | disposition home or self-care (01) ==
LOC: SDS 07:10
PROVIDERS: ATTEND Ophthalmology
DX: H25.12 Age-related nuclear cataract, left eye (principal); E03.9 Hypothyroidism, unspecified; I12.9 Hypertensive chronic kidney disease with stage 1 through stage 4 chronic kidney disease, or unspecified chronic kidney disease; N18.9 Chronic kidney disease, unspecified
CPT/HCPCS: 66984; A9270; J3490; J7120

== ENCOUNTER 2021-12-31 07:17 | Day surgery (SDC) | payer MEDICARE, OTHER ==
[2021-12-31] MEDS ORDERED: LACTATED RINGERS 1,000 ML IV ONE ×2 (07:21→09:38)
--- NOTE | 2021-12-31 08:06 | ANESTHESIA ---
Pre-Anesthesia VS, & Labs - Diagnosis right eye cataract - Procedure right CATIOL Vital Signs: Temp Pulse Resp BP Pulse Ox 37.8 C 77 18 144/52 H 100 12/31/21 07:38 12/31/21 07:38 12/31/21 07:38 12/31/21 07:38 12/31/21 07:38 Height: 5 ft 7 in - NPO >8 hours - Is Patient ?: No - Lab Results Lab results reviewed: Yes Home Medications and Allergies Levothyroxine Sodium [Levothroid] 50 mcg PO DAILY 04/16/13 Albuterol 1 neb IH QID PRN 12/23/18 Hydrocodone/Acetaminophen [[place] 5-325 Tablet] 1 tab PO TID PRN 12/23/18 Pantoprazole [Protonix] 1 tab PO DAILY 12/23/18 clonazePAM [Clonazepam] 1 tab PO TID PRN 12/23/18 Calcium Carbonate [Tums (Calcium Carbonate 500mg)] 1,000 mg PO BID 11/12/21 Loperamide [Imodium] 8 mg PO PRN PRN 11/12/21 Sertraline [Zoloft] 1 tab PO DAILY 11/12/21 Allergies/Adverse Reactions: Allergies Allergy/AdvReac Type Severity Reaction Status Date / Time No Known Drug Allergies Allergy Verified 11/12/21 07:48 Anes History & Medical History - Anesthetic History Anesthesia Complications: reports: No previous complications Family history of Anesthesia Complications: Denies Family history of Malignant Hyperthermia: Denies - Medical History Cardiovascular: reports: Hypertension, Other Pulmonary: reports: Other Gastrointestinal: reports: Hiatal hernia Urinary: reports: Renal insuffiency (on dialysis), Other Musculoskeletal: reports: Chronic back pain, Other Endocrine/Autoimmune: reports: HyPOthyroidism Blood Disorders: reports: Anemia Skin: reports: None Smoking Status: Never smoker - Surgical History General: reports: Cholecystectomy Orthopedic: reports: Other Exam General: Alert, Oriented x3, Cooperative, No acute distress Dental: Dentures full Upper, Dentures full Lower Mouth Openin Fingerbreadth Neck Mobility: Normal Mallampati classification: II Plan Anesthesia Type: General (backup), MAC Consent for Procedure(s) Verified and Reviewed: Yes Code Status: Attempt Resuscitation ASA classification: 4-Incapacitating disease Is this case an emergency?: No
[2021-12-31] MEDS ORDERED: MIDAZOLAM 2 MG/2 ML VIAL ONE (08:22)
[2021-12-31] MEDS ORDERED: BRIMONIDINE 0.2% OPHTH DROPS 5 ML OPTH ONE (08:44)
[2021-12-31] MEDS ORDERED: EPINEPHrine 1 MG/ML AMP IR ONE (08:44)
[2021-12-31] MEDS ORDERED: TRIAMCIN/MOXIFLOX OPHTHALMIC 0.6 ML VIAL IO ONE ×2 (08:45→12:56)
[2021-12-31] MEDS ORDERED: BSS/LIDOCAINE/EPINEPHRINE 1 ML SYRINGE IO ONE (08:45)
[2021-12-31] MEDS ORDERED: TIMOLOL 0.5% OPHTH DROPS OPTH ONE (08:45)
[2021-12-31] MEDS ORDERED: VANCOMYCIN OPHTHALMI 8MG/0.8ML 8 MG/0.8 ML SYRINGE IO ONE (08:46)
[2021-12-31] MEDS ORDERED: PROPARACAINE 0.5% OPHTH DROPS 15 ML EACHEYE ONE (08:46)
[2021-12-31] MEDS ORDERED: LIDOCAINE-MPF 2% 5 ML VIAL ONE (08:48)
--- NOTE | 2021-12-31 09:06 | ANESTHESIA POST OP EVALUATION ---
Anesthesia Post Eval - Post Anesthesia Eval Vitals: Last Vital Signs Temp 37.8 C 12/31/21 07:38 Pulse 77 12/31/21 07:38 Resp 18 12/31/21 07:38 BP 144/52 H 12/31/21 07:38 Pulse Ox 100 12/31/21 07:38 CV Function Including HR & BP: Stable Pain Control: Satisfactory Nausea & Vomiting: Negative Mental Status: Baseline Respiratory Status: Airway Patent Hydration Status: Satisfactory Anesthesia Complications: None
--- NOTE | 2021-12-31 09:11 | OPERATIVE REPORT ---
Operative Report - Other Other Information/Narrative: Date of Surgery: 12/31/21 Preop Dx: Visually significant cataract right eye. Cataract surgery was performed in the left eye on [id number]. Postop Dx: Same Procedure: Phacoemulsification with posterior chamber intraocular lens implant right eye Surgeon: Dr. Jaziel Isabel Anesthesia: Monitored anesthesia care Complications: None Operative Indications: This is a 81-year-old F with progressive vision loss in the right eye due to 4+ nuclear sclerotic cataract. Best corrected visual acuity was 20/50 with glare to 20/125 vision in the right eye. Indications for surgery were: - Overall decrease in vision - Difficulty seeing words on a computer screen - Difficulty reading - Difficulty seeing words, closed captions, or game scores on TV - Difficulty with glare or bright lights in any situation The patient was consented at length concerning the risks and benefits of cataract surgery after which the patient expressed a desire to proceed with surgery. Operative Procedure: The patient was taken into OR#3 and placed under monitored anesthesia care. A surgical time-out was conducted confirming correct patient, correct procedure, and correct surgical site. The patient was given topical anesthesia and then prepped and draped in the usual sterile fashion. The eye was entered at the 6 and 3 oclock positions. Intracameral Shugarcaine was injected into the anterior chamber followed by a dispersive viscoelastic. A continuous-tear curvilinear capsulorhexis was performed. The nucleus was hydrodissected and phacoemulsified. The cortex was evacuated using automated infusion and aspiration. A cohesive viscoelastic was injected into the capsular bag and a 23.0 diopter intraocular lens was inserted into the bag. Infusion and aspiration were used to evacuate the viscoelastic materials from the eye. The wounds were hydrated and the eye inflated to physiologic pressure using balanced salt solution. Approximately 0.25ml of a mixture of triamcinolone and moxifloxacin was injected trans-sclerally into the vitreous in the inferotemporal quadrant using a 30 gauge cannula. An additional 0.55ml of a mixture of triamcinolone, moxifloxacin, and vancomycin was injected subconjunctivally in the superior quadrant for infection and inflammation prophylaxis. Wound integrity was checked with Weck-Nilda sponges and the wound was found to be leaking. A single 10-0 nylon suture was placed across the phaco wound. Wound leakage ceased. The patient was taken from the operating room in good condition and given post-op instructions.
[2021-12-31 09:15] VITALS: BP 143/40
[2021-12-31] MEDS ORDERED: BSS/LIDOCAINE/EPINEPHRINE 1 ML VIAL ONE (12:56)
[2021-12-31] MEDS ORDERED: TIMOLOL 0.5% OPHTH DROPS ONE (12:56)
[2021-12-31] MEDS ORDERED: EPINEPHrine 1 MG/ML AMP ONE (12:56)
[2021-12-31] MEDS ORDERED: BRIMONIDINE 0.2% OPHTH DROPS 5 ML ONE (12:56)
== END 2021-12-31 07:18 | disposition home or self-care (01) ==
LOC: SDS 07:17
PROVIDERS: ATTEND Ophthalmology
DX: H25.11 Age-related nuclear cataract, right eye (principal); Z98.42 Cataract extraction status, left eye; Z87.891 Personal history of nicotine dependence
CPT/HCPCS: 66984; A9270; J3490; J7120